=== PATIENT | female | born 1985 | race Caucasian/White ===

== ENCOUNTER 2017-12-09 14:06 | Inpatient (IN) ==
[2017-12-09] MEDS ORDERED: Sodium Chlor 0.9% Inj 500 ML IV.SIG ONE (14:43)
[2017-12-09] MEDS ORDERED: fentaNYL Citrate Inj 100 MCG/2 ML Ampul IV.PUSH PRN ×2 (14:43)
[2017-12-09] MEDS ORDERED: Naloxone Inj 0.4 MG/ML Vial IV.PUSH PRN ×2 (14:43→23:02)
[2017-12-09] MEDS ORDERED: Sod Chloride 0.9% Inj 1,000 ML IV.CONT PRN (14:45)
[2017-12-09] MEDS ORDERED: Citric Acid/Sodium Citrate Liq 30 ML UDC PO SCH ×2 (14:45→15:30)
[2017-12-09] MEDS ORDERED: Oxytocin 30 Units/500ml Premix 30 UNITS/500 ML BAG IV.CONT PRN (14:46)
[2017-12-09] MEDS ORDERED: fentaNYL 2MCG-Bupiv 0.125% Epi 150 ML EPIDURAL ONE (14:51)
[2017-12-09 14:54] LABS: Baso % (Auto) 0.1 % (0.0-2.0); Eos # (Auto) 0.1 th/mm3 (0.0-0.4); Eos % (Auto) 0.6 % (0.0-4.0); Hematocrit 38.9 % (35.0-46.0); Hemoglobin 12.9 gm/dL (11.6-15.3); Lymph # (Auto) 2.1 th/mm3 (1.0-4.8); Lymph % (Auto) 16.6 % (9.0-44.0); Mean Corpuscular HGB Conc 33.1 % (32.0-36.0); Mean Corpuscular Hemoglobin 27.9 pg (27.0-34.0); Mean Corpuscular Volume 84.2 fL (80.0-100.0); Mean Platelet Volume 7.8 fL (7.0-11.0); Mono # (Auto) 0.6 th/mm3 (0.0-0.9); Mono % (Auto) 4.7 % (0.0-8.0); Platelet Count 260 th/mm3 (150-450); Red Blood Count 4.62 mil/mm3 (4.00-5.30); Red Cell Distribution Width 15.4 % (11.6-17.2); White Blood Count 12.8 th/mm3 (4.0-11.0)
[2017-12-09] MEDS ORDERED: Oxytocin 30 Units/500ml Premix 30 UNITS/500 ML BAG IV.SIG ONE (15:00)
--- NOTE | 2017-12-09 15:03 | P.HPOB ---
History of Present Illness Service: Obstetrics Primary Care Physician: UNKNOWN Chief Complaint: term labor augmentation History of Present Illness: 32 yo with cade IUP at 37w1d, EDC 12/29/17, presented to office with c/o pelvic pressure, contractions. SVE in office 6-7 stretchy 50% effaced -2 station. History of precipitous delivery with prior , pt lives >30 minutes from hospital. Discussed with patient and admission and augmentation, both amenable. No LOF or VB. Good FM. Pain 4/10 low pelvis. Weeks Gestation:: 37 Para: 1 : 3 Total # of Miscarriage(s): 1 Total # of Abortions (Spontaneous & Elective): 0 - Inpatient Certification If this patient has been admitted as an Inpatient: I certify that the inpatient services were ordered in accordance with Medicare regulations governing the order. This includes certification that hospital inpatient services are reasonable and necessary and in the case of services not specified as inpatient-only under 42 CFR 419.22(n), that they are appropriately provided as inpatient services in accordance to with the 2-midnight benchmark under 43 CFR 412.3(e) Estimated Total Length of Stay (Days): 4 Plans for Post Hospital Care: Home Review of Systems All other systems reviewed negative except as stated in HPI [facility] - Medical History Medical History: Medical History (Last Reviewed 12/09/17 @ 14:55 by Jacqui Suazo MD) Patient denies medical problems Subtalar joint instability - Surgical History Surgical History: Surgical History (Last Reviewed 12/09/17 @ 14:55 by Jacqui Suazo MD) H/O dilation and curettage - Family History Family History: Family History (Last Reviewed 12/09/17 @ 14:55 by Jacqui Suazo MD) Other No significant family history - Tobacco History Second Hand Smoke Exposure: No Tobacco Use In Past 30 Days: No Smoking Status: Never smoker Medications and Allergies Active Medications: Active Medications Citric Acid/Sodium Citrate (Sodium Citrate/Citric Acid Liq) 30 ml PO [employer] JARROD Stop: 12/13/17 14:44 Fentanyl Citrate (Fentanyl Inj) 50 mcg IV.PUSH Q1H PRN PRN Reason: Pain Scale 3 - 5 Fentanyl Citrate (Fentanyl Inj) 100 mcg IV.PUSH Q1H PRN PRN Reason: PAIN SCALE 6 TO 10 Lactated Ringer's (Lr 1000 Ml Inj) 1,000 mls @ 125 mls/hr IV.CONT .Q8H JARROD Sodium Chloride (Ns Inj) 500 mls @ 0 mls/hr IV.SIG BOLUS ONE Stop: 12/09/17 14:44 Sodium Chloride (Ns Inj) 1,000 mls @ 100 mls/hr IV.CONT .Q10H JARROD Oxytocin (Pitocin 30 Units/Ns 500 Ml Premix) 30 units in 500 mls @ 0 mls/hr IV.SIG BOLUS ONE Stop: 12/09/17 14:44 Lactated Ringer's (Lr 1000 Ml Inj) 3,000 mls @ 3,000 mls/hr IV.SIG UNSCH ONE Stop: 12/09/17 15:42 Oxytocin (Pitocin 30 Units/Ns 500 Ml Premix) 30 units in 500 mls @ 0 mls/hr IV.CONT TITRATE PRN; Protocol PRN Reason: For induction of labor Lidocaine HCl (Xylocaine 1% Inj) 0.1 ml INFILTRATN PRN PRN PRN Reason: For IV start Stop: 12/12/17 14:42 Lidocaine HCl (Xylocaine 1% Inj) 10 ml INFILTRATN PRN PRN PRN Reason: For episiotomy repair Stop: 12/11/17 14:42 Mineral Oil (Muri-Lube Oil) 10 ml TOPICAL PRN PRN PRN Reason: PRN perineal massage Naloxone HCl (Narcan Inj) 0.1 mg IV.PUSH Q2M PRN PRN Reason: for opiate reversal Ondansetron HCl (Zofran Inj) 4 mg IV.PUSH Q6H PRN PRN Reason: NAUSEA OR VOMITING Allergies Allergy/AdvReac Type Severity Reaction Status Date / Time No Known Allergies Allergy Verified 12/09/17 14:49 Exam Vital signs: Intake & Output 12/08/17 12/09/17 12/09/17 18:59 06:59 18:59 Weight 90.718 kg Other: Weight On Admission 86.183 kg - Constitutional mild distress - Routine HEENT Exam Head: Present: normocephalic, atraumatic Eye: Present: EOMI, PERRL ENT: Present: mucous membranes moist, nares patent - Routine Neck Exam Present: supple, full ROM - Routine Chest/Breast/Axilla Exam Chest wall: Absent: tenderness, mass Axillae: Absent: lymphadenopathy, mass - Routine Respiratory Exam Absent: accessory muscle use, respiratory distress - Routine Cardiovascular Exam Present: RRR. Absent: murmur - Routine Abdominal Exam Present: normoactive bowel sounds Comments: gravid to 37 wks, measuring 42 weeks - Routine Exam External: Present: normal urethra appearance Perineum Description: Intact Comments: SVE 6-7, stretchy, 50% effaced, -2 station, posterior - Routine Extremities Exam Present: edema (+1 b/l shins), pulses intact - Routine Skin Exam Present: intact. Absent: lesions - Routine Neurological Exam Present: alert, oriented X3 Caprini VTE Risk Assessment Caprini VTE Risk Assessment: No/Low Risk (score <= 1) VTE Pharmacological Exception Reason: Epidural catheter Caprini Risk Assessment Model: Point Value = 1 Point Value = 2 Point Value = 3 Point Value = 5 Age 41-60 Minor surgery BMI > 25 kg/m2 Swollen legs Varicose veins or History of unexplained or recurrent spontaneous Oral contraceptives or hormone replacement Sepsis (< 1 month) Serious lung disease, including pneumonia (< 1 month) Abnormal pulmonary function Acute myocardial infarction Congestive heart failure (< 1 month) History of inflammatory bowel disease Medical patient at bed rest Age 61-74 Arthroscopic surgery Major open surgery (> 45 min) Laparoscopic surgery (> 45 min) Malignancy Confined to bed (> 72 hours) Immobilizing plaster cast Central venous access Age >= 75 History of VTE Family history of VTE Factor V Leiden Prothrombin [id number] Lupus anticoagulant Anticardiolipin antibodies Elevated serum homocysteine Heparin-induced thrombocytopenia Other congenital or acquired thrombophilia Stroke (< 1 month) Elective arthroplasty Hip, pelvis, or leg fracture Acute spinal cord injury (< 1 month) Prophylaxis Regimen: Total Risk Factor Score Risk Level Prophylaxis Regimen 0-1 Low Early ambulation 2 Moderate Order ONE of the following: *Sequential Compression Device (SCD) *Heparin 5000 units SQ BID 3-4 Higher Order ONE of the following medications: *Heparin 5000 units SQ TID *Enoxaparin/Lovenox 40 mg SQ daily (WT < 150 kg, CrCl > 30 mL/min) *Enoxaparin/Lovenox 30 mg SQ daily (WT < 150 kg, CrCl > 10-29 mL/min) *Enoxaparin/Lovenox 30 mg SQ BID (WT < 150 kg, CrCl > 30 mL/min) AND/OR *Sequential Compression Device (SCD) 5 or more Highest Order ONE of the following medications: *Heparin 5000 units SQ TID (Preferred with Epidurals) *Enoxaparin/Lovenox 40 mg SQ daily (WT < 150 kg, CrCl > 30 mL/min) *Enoxaparin/Lovenox 30 mg SQ daily (WT < 150 kg, CrCl > 10-29 mL/min) *Enoxaparin/Lovenox 30 mg SQ BID (WT < 150 kg, CrCl > 30 mL/min) AND *Sequential Compression Device (SCD) Assessment and Plan - Diagnosis (1) Term Code(s): Z34.80 - Encounter for supervision of other normal , unspecified trimester Status: Acute (2) Active labor at term Status: Acute - Plan 32 yo with cade IUP at 37w1d admit for labor augmentation at term 1) Labor at term: advanced dilation, augment as needed, pitocin ordered 2) GBS neg 3) h/o precipitous delivery with G1 4) S>D: pt aware of risk of macrosomia & possibility of if indicated 5) h/o GDM with G1; passed 1h GTT this 6) status: vertx, female, EFW 8.5# Discharge Plannin-3d PP
[2017-12-09 15:12] LABS: Amphetamine Urine With Conf Neg (Neg); Benzodiazepine Urine With Conf Neg (Neg)
[2017-12-09] MEDS ORDERED: Sodium Chlor 0.9% Inj 500 ML IV.SIG PRN (15:22)
[2017-12-09] MEDS ORDERED: Diphtheria/Tetanus/Pertussis Vaccine Inj 0.5 ML Syringe IM ONE (16:00)
[2017-12-09] MEDS ORDERED: Measles/Mumps/Rubella Vaccine Inj 0.5 ML Vial SQ ONE (16:00)
[2017-12-09] MEDS ORDERED: fentaNYL Citrate Inj 100 MCG/2 ML Ampul EPIDURAL ONE (16:18)
[2017-12-09] MEDS ORDERED: fentaNYL 2MCG-Bupiv 0.125% Epi 150 ML EPIDURAL PRN (16:30)
--- NOTE | 2017-12-09 21:30 | P.OBLABOR ---
Subjective Interval history: The patient is comfortable with epidural. . Objective Vital Signs: Vital Signs - 8 hr 12/09/17 14:45 12/09/17 15:21 12/09/17 15:25 Temperature 99.5 F Pulse Rate 107 H 104 H 113 H Respiratory Rate 20 20 Blood Pressure 135/70 122/82 119/66 12/09/17 15:40 12/09/17 16:00 12/09/17 16:40 Temperature Pulse Rate 112 H 102 H 91 H Respiratory Rate 20 20 Blood Pressure 119/62 119/74 116/71 12/09/17 16:45 12/09/17 17:15 12/09/17 17:44 Temperature Pulse Rate 89 93 H 97 H Respiratory Rate 20 20 Blood Pressure 117/69 99/70 L 109/57 L 12/09/17 18:15 12/09/17 18:30 12/09/17 18:45 Temperature Pulse Rate 88 84 Respiratory Rate 20 Blood Pressure 104/79 104/61 12/09/17 18:46 12/09/17 19:15 12/09/17 20:00 Temperature Pulse Rate 86 103 H 89 Respiratory Rate 18 Blood Pressure 91/62 L 117/59 L 114/60 12/09/17 20:15 12/09/17 20:30 12/09/17 20:46 Temperature Pulse Rate 93 H 101 H 98 H Respiratory Rate 18 Blood Pressure 108/57 L 102/59 L 111/67 12/09/17 20:58 12/09/17 21:00 12/09/17 21:15 Temperature Pulse Rate 89 93 H Respiratory Rate 18 Blood Pressure 123/66 128/73 Objective: Pelvic Exam: Cervix: [-] Dilatation: [7-] Effacement: [90-] Station: [--2] Presentation: [-vtx] Membranes: [ruptured, clear fluid] Uterine Contractions: [-q2] FHT's: Category: [-2] Baseline: [-130] Reactive: [-] Variability: [mod-] Decels: [-Variable] Accelerations present Artificial Rupture of Membrane: Yes (Clear fluid) Artificial ROM Date: 12/09/17 Artificial ROM Time: 21:28 Assessment and Plan - Plan 32 yo with cade IUP at 37w1d admit for labor augmentation at term 1) Labor at term: advanced dilation, augment as needed, pitocin ordered 2) GBS neg 3) h/o precipitous delivery with G1 4) S>D: pt aware of risk of macrosomia & possibility of if indicated 5) h/o GDM with G1; passed 1h GTT this 6) status: vertx, female, EFW 8.5# Continue Pitocin augmentation Discharge Plannin-3d PP
[2017-12-09] MEDS ORDERED: Lidocaine PF 1% Inj 30 ML Vial ONE (22:08)
[2017-12-09] MEDS ORDERED: Witch Hazel 50%/Glyderin 12.5% 40 Pad Jar RECTAL PRN (23:02)
[2017-12-09] MEDS ORDERED: Bisacodyl 10 MG Supp RECTAL PRN (23:02)
[2017-12-09] MEDS ORDERED: Benzocaine 20% Top Spray 60 ML Can TOPICAL PRN (23:02)
[2017-12-09] MEDS ORDERED: Ibuprofen 400 MG Tablet PO PRN (23:02)
[2017-12-09] MEDS ORDERED: Acetaminophen 325 MG Tablet PO PRN (23:02)
[2017-12-09] MEDS ORDERED: Zolpidem Tartrate 5 MG Tablet PO PRN (23:02)
--- NOTE | 2017-12-09 23:07 | P.OBDELI ---
Weeks Gestation: 37 Patient Started Active Labor: Yes Medical Induction of Labor: No Anesthesia: Epidural Episiotomy: none Vaginal Delivery: Normal Presentation: Occiput anterior Nuchal Cord: None Delayed Cord Clamping (45 sec): Yes Placenta: Spontaneous delivery, Intact, 3 vessel cord Laceration: Vaginal, 1 deg Repair: Chromic running Estimated blood loss (mL): 100 Infant: Female, Single Female A Infant Delivery Date: 12/09/17 Delivery Time: 22:39 score (1 min): 8 score (5 min): 9
[2017-12-09] MEDS ORDERED: Oxytocin 30 Units/500ml Premix 30 UNITS/500 ML BAG IV.CONT SCH (23:15)
[2017-12-10] MEDS: Prenatal Vit/Ca/Iron/Folic Acid Tablet PO SCH (09:35)
[2017-12-10] MEDS: Senna/Docusate Sodium 8.6/50 MG Tablet PO SCH ×2 (09:36→22:14)
--- NOTE | 2017-12-10 10:13 | P.PNOB ---
Subjective Post day: 1 Interval history: doing well, lochia light Objective Vital Signs/I&O: Vital Signs 12/09/17 14:45 12/09/17 15:21 12/09/17 15:25 Temperature 99.5 F Pulse Rate 107 H 104 H 113 H Respiratory Rate 20 20 Blood Pressure 135/70 122/82 119/66 12/09/17 15:40 12/09/17 16:00 12/09/17 16:40 Temperature Pulse Rate 112 H 102 H 91 H Respiratory Rate 20 20 Blood Pressure 119/62 119/74 116/71 12/09/17 16:45 12/09/17 17:15 12/09/17 17:44 Temperature Pulse Rate 89 93 H 97 H Respiratory Rate 20 20 Blood Pressure 117/69 99/70 L 109/57 L 12/09/17 18:15 12/09/17 18:30 12/09/17 18:45 Temperature Pulse Rate 88 84 Respiratory Rate 20 Blood Pressure 104/79 104/61 12/09/17 18:46 12/09/17 19:15 12/09/17 20:00 Temperature Pulse Rate 86 103 H 89 Respiratory Rate 18 Blood Pressure 91/62 L 117/59 L 114/60 12/09/17 20:15 12/09/17 20:30 12/09/17 20:46 Temperature Pulse Rate 93 H 101 H 98 H Respiratory Rate 18 Blood Pressure 108/57 L 102/59 L 111/67 12/09/17 20:58 12/09/17 21:00 12/09/17 21:15 Temperature Pulse Rate 89 93 H Respiratory Rate 18 Blood Pressure 123/66 128/73 12/09/17 21:45 12/09/17 22:00 12/09/17 22:15 Temperature Pulse Rate 91 H 95 H 99 H Respiratory Rate Blood Pressure 120/69 129/75 149/74 H 12/09/17 23:15 12/09/17 23:30 12/09/17 23:45 Temperature 97.9 F Pulse Rate Respiratory Rate 18 18 18 Blood Pressure 12/10/17 00:00 12/10/17 00:15 12/10/17 00:30 Temperature Pulse Rate Respiratory Rate 18 18 18 Blood Pressure 12/10/17 00:45 12/10/17 01:00 12/10/17 01:45 Temperature 98.4 F Pulse Rate 86 84 Respiratory Rate 18 18 18 Blood Pressure 120/63 112/62 12/10/17 08:00 Temperature 98.2 F Pulse Rate 74 Respiratory Rate 20 Blood Pressure 104/60 Intake & Output 12/09/17 12/10/17 12/10/17 18:59 06:59 18:59 Weight 90.718 kg Other: Weight On Admission 86.183 kg Result Diagrams: 12/09/17 14:30 Objective Remarks: GENERAL: Well-nourished, well-developed patient. CARDIOVASCULAR: Regular rate and rhythm without murmurs, gallops, or rubs. RESPIRATORY: Breath sounds equal bilaterally. No accessory muscle use. ABDOMEN/GI: Abdomen soft, non-tender. Fundus: Firm, non-tender at umbilicus. GENITOURINARY: Light bleeding. EXTREMITIES: No cyanosis or edema, non-tender, without signs of DVT. Medications and IVs: Active Medications Acetaminophen (Tylenol) 650 mg PO Q4H PRN PRN Reason: PAIN SCALE 1 TO 2 Al Hydroxide/Mg Hydroxide (Milk Of Magnesia Liq) 30 ml PO Q12H PRN PRN Reason: Mild Constipation Benzocaine (Americaine 20% Top [place]) 1 spray TOPICAL Q4H PRN PRN Reason: For Perineum Discomfort Last Admin: 12/10/17 02:16 Dose: 1 spray Bisacodyl (Dulcolax Supp) 10 mg RECTAL DAILY PRN PRN Reason: SEVERE CONSITIPATION Lactulose (Lactulose Liq) 30 ml PO DAILY PRN PRN Reason: SEVERE CONSITIPATION Naloxone HCl (Narcan Inj) 0.1 mg IV.PUSH Q2M PRN PRN Reason: for opiate reversal Ondansetron HCl (Zofran Odt) 4 mg PO Q6H PRN PRN Reason: NAUSEA OR VOMITING Oxycodone/Acetaminophen (Percocet 5/325 Mg) 1 tab PO Q4H PRN PRN Reason: PAIN SCALE 3 TO 5 Oxycodone/Acetaminophen (Percocet 5/325 Mg) 2 tab PO Q4H PRN PRN Reason: PAIN SCALE 6 TO 10 Vit/Calcium/Iron/Folic Ac (Stuartnatal Plus 3) 1 tab PO DAILY JARROD Last Admin: 12/10/17 09:35 Dose: 1 tab Senna/Docusate Sodium (Diane-Colace) 1 tab PO BID JARROD Last Admin: 12/10/17 09:36 Dose: 1 tab Sennosides (Senokot) 17.2 mg PO Q12H PRN PRN Reason: Moderate Constipation Sodium Chloride (Ns Flush) 2 ml IV.FLUSH BID JARROD Sodium Chloride (Ns Flush) 2 ml IV.FLUSH PRN PRN PRN Reason: FLUSH AFTER USING IV ACCESS [place]/Glycerin (Tucks Pads) 1 applicatio RECTAL QID PRN PRN Reason: HEMORRHOIDS Last Admin: 12/10/17 02:15 Dose: 1 applicatio Zolpidem Tartrate (Ambien) 5 mg PO HS PRN PRN Reason: SLEEP Assessment and Plan - Diagnosis (1) (spontaneous vaginal delivery) Code(s): O80 - Encounter for full-term uncomplicated delivery Status: Acute (2) Term Code(s): Z34.80 - Encounter for supervision of other normal , unspecified trimester Status: Acute (3) Active labor at term Status: Acute - Plan PPD#1 s/p uncomplicated , healthy female infant; routine supportive care; anticipate d/c to home 12/11/17 Discharge Plannin-3d PP
[2017-12-10] MEDS ORDERED: Diphtheria/Tetanus/Pertussis Vaccine Inj 0.5 ML Syringe IM ONE (23:45)
[2017-12-11] MEDS: Senna/Docusate Sodium 8.6/50 MG Tablet PO SCH (09:06)
[2017-12-11] MEDS: Prenatal Vit/Ca/Iron/Folic Acid Tablet PO SCH (09:06)
--- NOTE | 2017-12-11 09:56 | P.PNOB ---
Subjective Post day: 2 Objective Vital Signs/I&O: Vital Signs 12/10/17 20:00 12/11/17 08:00 Temperature 98.3 F 97.8 F Pulse Rate 64 62 Respiratory Rate 18 18 Blood Pressure 109/62 109/78 Result Diagrams: 12/09/17 14:30 Objective Remarks: GENERAL: Well-nourished, well-developed patient. CARDIOVASCULAR: Regular rate and rhythm without murmurs, gallops, or rubs. RESPIRATORY: Breath sounds equal bilaterally. No accessory muscle use. ABDOMEN/GI: Abdomen soft, non-tender. Fundus: Firm, non-tender at umbilicus. GENITOURINARY: Light bleeding. EXTREMITIES: No cyanosis or edema, non-tender, without signs of DVT. Medications and IVs: Active Medications Acetaminophen (Tylenol) 650 mg PO Q4H PRN PRN Reason: PAIN SCALE 1 TO 2 Al Hydroxide/Mg Hydroxide (Milk Of Magnesia Liq) 30 ml PO Q12H PRN PRN Reason: Mild Constipation Benzocaine (Americaine 20% Top [place]) 1 spray TOPICAL Q4H PRN PRN Reason: For Perineum Discomfort Last Admin: 12/10/17 02:16 Dose: 1 spray Bisacodyl (Dulcolax Supp) 10 mg RECTAL DAILY PRN PRN Reason: SEVERE CONSITIPATION Lactulose (Lactulose Liq) 30 ml PO DAILY PRN PRN Reason: SEVERE CONSITIPATION Naloxone HCl (Narcan Inj) 0.1 mg IV.PUSH Q2M PRN PRN Reason: for opiate reversal Ondansetron HCl (Zofran Odt) 4 mg PO Q6H PRN PRN Reason: NAUSEA OR VOMITING Oxycodone/Acetaminophen (Percocet 5/325 Mg) 1 tab PO Q4H PRN PRN Reason: PAIN SCALE 3 TO 5 Oxycodone/Acetaminophen (Percocet 5/325 Mg) 2 tab PO Q4H PRN PRN Reason: PAIN SCALE 6 TO 10 Vit/Calcium/Iron/Folic Ac ([place]natal Plus 3) 1 tab PO DAILY [facility] Last Admin: 12/11/17 09:06 Dose: 1 tab Senna/Docusate Sodium (Diane-Colace) 1 tab PO BID [facility] Last Admin: 12/11/17 09:06 Dose: Not Given Sennosides (Senokot) 17.2 mg PO Q12H PRN PRN Reason: Moderate Constipation Sodium Chloride (Ns Flush) 2 ml IV.FLUSH BID JARROD Last Admin: 12/10/17 22:15 Dose: Not Given Sodium Chloride (Ns Flush) 2 ml IV.FLUSH PRN PRN PRN Reason: FLUSH AFTER USING IV ACCESS [place]/Glycerin (Tucks Pads) 1 applicatio RECTAL QID PRN PRN Reason: HEMORRHOIDS Last Admin: 12/10/17 02:15 Dose: 1 applicatio Zolpidem Tartrate (Ambien) 5 mg PO HS PRN PRN Reason: SLEEP Assessment and Plan - Diagnosis (1) (spontaneous vaginal delivery) Code(s): O80 - Encounter for full-term uncomplicated delivery Status: Acute (2) Term Code(s): Z34.80 - Encounter for supervision of other normal , unspecified trimester Status: Acute (3) Active labor at term Status: Acute - Plan PPD#2 s/p uncomplicated , healthy female ; routine supportive care; d/ c to home today Discharge Planning: today
== END 2017-12-11 11:39 | disposition home or self-care (01) ==
LOC: H2E 14:06 → H1EA 12-10 02:02
PROVIDERS: ADMIT Obstetrics & Gynecology; ATTEND Obstetrics & Gynecology